=== PATIENT | female | born 2000 | race Caucasian/White ===

== ENCOUNTER 2019-07-19 15:42 | Emergency (ER) | payer SELFPAY ==
--- NOTE | 2019-07-19 15:56 | ER Document Report ---
HPI - HPI Time Seen by Provider: 07/19/19 15:50 Pain Level: 4 Notes: 19-year-old female presents to the ED for evaluation of right hand pain after her dog bit her after breaking up a fight between the dogs, states the dog's rabies vaccinations are up-to-date, patient states her tetanus was in the last 8 years, denies any numbness or tingling in hands or fingers on the right. No other area of injury. No [id number] medications have been tried, patient has not soaked fingers, this happened approximately 1 hour ago. No active bleeding. Denies any fevers or chills, chest pain shortness of breath, nausea vomiting or diarrhea, abdominal pain. - REPRODUCTIVE Reproductive: DENIES: : Past Medical History - General Information source: Patient - Social History Smoking Status: Unknown if Ever Smoked Family History: Reviewed & Not Pertinent Vertical Provider Document - CONSTITUTIONAL Agree With Documented VS: Yes Exam Limitations: No Limitations General Appearance: WD/WN - INFECTION CONTROL TRAVEL OUTSIDE OF THE [place] IN LAST 30 DAYS: No Course - Re-evaluation Re-evalutation: 07/19/19 16:35 19-year-old female presents for evaluation of dog bite. Afebrile vital stable no distress. Nurse's notes reviewed. Dog's rabies vaccinations up-to-date, patient states she has not had a tetanus in the last 8 years when she spoke with this provider however told the nurse it was within the last 5 years. Tetanus was ordered. High-pressure irrigation of dog bite with sutures approximately 1.5 cm and a half [place] presentation irrigated with 200 mL's of normal saline. No foreign body seen on exploration of the wound. One Steri-Strip was placed to approximate wound edges but did not fully close wound due to the wound being from a dog's mouth. X-ray did not show any foreign body or fracture. Will start patient on oral clindamycin as directed. X-ray of right third digit was negative for any acute fracture dislocation or foreign body. Patient placed in a metal finger splint Consent by pt given to place right finger splint,. cms intact, sensory motor function intact in bilateral upper_extremities prior to splint application fiberglass splint placed without incident. cms intact 20 minutes after splint application. Splint is in good alignment. Bilateral upper extremities with motor and sensory function intact 20 minutes after application. Pt stated that splint felt comfortable. After performing a Medical Screening Examination, I estimate there is LOW risk for OPEN FRACTURE, COMPARTMENT SYNDROME, TENDON RUPTURE, ACUTE NEUROVASCULAR INJURY, or RETAINED FOREIGN BODY, thus I consider the discharge disposition reasonable. Also, there is no evidence or peritonitis, sepsis, or toxicity. I have reevaluated this patient multiple times and no significant life threatening changes are noted. The patient and I have discussed the diagnosis and risks, and we agree with discharging home with close follow-up with the understanding that symptoms and presentations can change. We also discussed returning to the Emergency Department immediately if new or worsening symptoms occur. We have discussed the symptoms which are most concerning (e.g., changing or worsening pain, fever, numbness, weakness, cool or painful digits) that necessitate immediate return. 07/19/19 17:22 - Vital Signs Vital signs: Temp Pulse Resp BP Pulse Ox 98.0 F 93 16 133/79 H 96 07/19/19 15:47 07/19/19 15:47 07/19/19 15:47 07/19/19 15:47 07/19/19 15:47 Discharge - Discharge Clinical Impression: Dog bite, Laceration Condition: Stable Disposition: HOME, SELF-CARE Instructions: Animal Bites ([facility]), Laceration Care ([facility]), Prophylactic Antibiotic ([facility]), Soap Cleansing ([facility]), Tetanus Immunization Given ([facility]) Additional Instructions: Animal Bites Animal bites are often heavily contaminated with bacteria. In spite of thorough cleansing and proper treatment, these wounds frequently become infected. Bite wounds of the hands are especially prone to complications. Bites are dressed, if possible. Large wounds may require suturing after internal cleansing. Because of infection risk, some large wounds must remain unstitched. Your doctor is trained to advise you on the best treatment for your bite. Call the doctor at once if the wound becomes red, swollen, warm, increasingly painful, or if it begins to drain. Danger signs also include red streaks up the involved extremity, swollen glands in the groin or under the arm, or fever and chills. The risk of rabies from domestic animals is very low. Bats, sick animals, and wild animals may expose you to rabies. The physician, or the health department, will inform you if you will need to receive the rabies vaccine. Tetanus shot given. X-ray does not show any fracture. Take antibiotics as directed with food. Wound check in 24 to 48 hours. Return immediately for any new or worsening symptoms. Follow up with primary care provider, call tomorrow to make followup appointment. Prescriptions: Clindamycin HCl 300 mg PO Q6H #28 capsule Forms: Return to Work Referrals: VENKAT FAULKNER MD [Primary Care Provider] - Follow up in 3-5 days
[2019-07-19] MEDS ORDERED: DIPH/PERTUSS(ACELL)/TETANUS VAC/PF 0.5 ML SYR (>=10YO) IM ONE (16:31)
--- NOTE | 2019-07-19 16:52 | RADIOLOGY REPORT (SQ) ---
EXAM DESCRIPTION: FINGER LEFT COMPLETED DATE/TIME: 07/19/2019 4:42 pm REASON FOR STUDY: 3rd distal phalanx, dog bite, COMPARISON: None. NUMBER OF VIEWS: Three views. TECHNIQUE: AP, lateral, and oblique images acquired of the left 3rd finger LIMITATIONS: None. FINDINGS: MINERALIZATION: Normal. BONES: No acute fracture or dislocation. No worrisome bone lesions. SOFT TISSUES: Palmar finger tip soft tissue laceration left 3rd finger. No retained radiopaque forei gn body. No bony puncture wound left 3rd finger distal phalanx. OTHER: No other significant finding. IMPRESSION: Soft tissue laceration palmar aspect left 3rd finger tip without underlying fracture or retained radiopaque foreign body TECHNICAL DOCUMENTATION: JOB ID: [id number] [employer]- All Rights Reserved Reading location - IP/workstation name: [email or web address]
[2019-07-19 17:28] VITALS: BP 120/76
== END 2019-07-19 17:28 | disposition home or self-care (01) ==
LOC: ER 15:42
DX: S61.451A Open bite of right hand, initial encounter (principal); M79.641 Pain in right hand; W54.0XXA Bitten by dog, initial encounter
CPT/HCPCS: 99283

== ENCOUNTER 2020-05-22 21:21 | Emergency (ER) | payer MEDICAID ==
--- NOTE | 2020-05-22 22:16 | ER Document Report ---
ED Medical Screen (RME) - General Chief Complaint: Vaginal Bleeding Stated Complaint: VAGINAL BLEEDING, 7WKS PREG, LIGHTHEADED Time Seen by Provider: 05/22/20 22:11 Primary Care Provider: VENKAT FAULKNER MD [Primary Care Provider] - Follow up as needed Mode of Arrival: Ambulatory Information source: Patient Notes: HPI; 20-year-old female who states she is approximately 7 weeks presents to the emergency room complaining of vaginal bleeding with cramping that started last night. She denies any nausea, vomiting, no medications for pain. 1, LMP 03/21/2020 PE: Alert and oriented x3. Mild distress noted. Lungs: Clear to auscultation without rales, rhonchi, wheezes. Heart: Regular rate rhythm without murmurs, rubs, gallops. Unable to complete full abdominal exam in triage. I have greeted and performed a rapid initial assessment of this patient. A comprehensive ED assessment and evaluation of the patient, analysis of test results and completion of the medical decision making process will be conducted by additional ED providers. I have specifically instructed the patient or family members with the patient to immediately return to any nursing staff should anything change in the patient's condition or with their chief complaint. TRAVEL OUTSIDE OF THE [place] IN LAST 30 DAYS: No - Related Data Allergies/Adverse Reactions: No Known Allergies Allergy (Verified 07/19/19 15:43) Past Medical History Renal/ Medical History: Denies: Hx Peritoneal Dialysis Past Surgical History: Reports: Hx Tonsillectomy Physical Exam - Vital signs Vitals: Temp Pulse Resp BP Pulse Ox 98.3 F 77 16 135/74 H 98 05/22/20 21:05/22/20 21:27 05/22/20 21:05/22/20 21:05/22/20 21:27 Course - Vital Signs Vital signs: Temp Pulse Resp BP Pulse Ox 98.3 F 77 16 135/74 H 98 05/22/20 21:05/22/20 21:05/22/20 21:27 05/22/20 21:27 05/22/20 21:27 Doctor's Discharge - Discharge Referrals: VENKAT FAULKNER MD [Primary Care Provider] - Follow up as needed
[2020-05-22 22:41] LABS: APPEARANCE,URINE CLOUDY; BILIRUBIN,URINE NEGATIVE (NEGATIVE); COLOR,URINE AMBER; GLUCOSE, URINE NEGATIVE (NEGATIVE); KETONES,URINE NEGATIVE (NEGATIVE); LEUKOCYTE ESTERASE,URINE SMALL (NEGATIVE); NITRITE,URINE NEGATIVE (NEGATIVE); PROTEIN,URINE 30 mg/dL (NEGATIVE); URINE SPECIFIC GRAVITY 1.025; UROBILINOGEN,URINE NEGATIVE mg/dL (<2.0)
--- NOTE | 2020-05-23 00:03 | RADIOLOGY REPORT (SQ) ---
EXAM: First trimester OB ultrasound CLINICAL INDICATION: Vaginal bleeding COMPARISON: None. TECHNIQUE: First trimester OB ultrasound was performed. FINDINGS: Uterus: The uterus is anteverted. It measures 7.8 x 4.1 x 3.5 cm. The cervix is closed and measures 2.3 cm. The endometrium is normal measures 4.5 mm. No gestational sac. No intrauterine is seen. Ovaries and adnexa: The right ovary measures 2.9 x 2.0 x 1.9 cm and has normal blood flow and normal morphology. The left ovary measures 3.0 x 2.9 x 2.1 cm and also has normal morphology and normal blood flow. No adnexal mass. No free fluid. IMPRESSION: Unremarkable pelvic ultrasound. No gestational sac is seen. Viability is indeterminate.
[2020-05-23 02:46] LABS: ABSOLUTE BASOPHILS # (AUTO) 0.1 10^3/uL (0.0-0.2); ABSOLUTE EOSINOPHILS # (AUTO) 0.1 10^3/uL (0.0-0.6); ABSOLUTE MONOCYTES (AUTO) 0.8 10^3/uL (0.1-1.4); ABSOLUTE NEUT (AUTO) 6.9 10^3/uL (1.7-8.2); BASOPHILS % (AUTO) 0.5 % (0-2); EOSINOPHILS % (AUTO) 0.9 % (0-6); HEMATOCRIT 41.6 % (36.0-47.0); HEMOGLOBIN 14.1 g/dL (12.0-15.5); LYMPHOCYTES % (AUTO) 33.7 % (13-45); MEAN CORPUSCULAR HEMOGLOBIN 27.3 pg (27.0-33.4); MEAN CORPUSCULAR HGB CONC 33.9 g/dL (32.0-36.0); MEAN CORPUSCULAR VOLUME 81 fl (80-97); MONOCYTES % (AUTO) 6.5 % (3-13); PLATELET COUNT 251 10^3/uL (150-450); RED BLOOD COUNT 5.17 10^6/uL (3.72-5.28); RED CELL DISTRIBUTION WIDTH 13.9 % (11.5-14.0); SEGMENTED NEUTROPHILS % (AUTO) 58.4 % (42-78); TOTAL CELLS COUNTED % (AUTO) 100 %; WHITE BLOOD COUNT 11.7 10^3/uL (4.0-10.5)
[2020-05-23 03:01] LABS: ALBUMIN 4.2 g/dL (3.5-5.0); ALKALINE PHOSPHATASE 61 U/L (38-126); ANION GAP 8 (5-19); ASPARTATE AMINO TRANSFERASE 19 U/L (14-36); BILIRUBIN,TOTAL 0.5 mg/dL (0.2-1.3); BLOOD UREA NITROGEN 15 mg/dL (7-20); CALCIUM 9.1 mg/dL (8.4-10.2); CARBON DIOXIDE 26 mmol/L (22-30); CHLORIDE 104 mmol/L (98-107); GLUCOSE 109 mg/dL (75-110); POTASSIUM 3.8 mmol/L (3.6-5.0)
--- NOTE | 2020-05-23 05:19 | ER Document Report ---
ED General - General Chief Complaint: Vaginal Bleeding Stated Complaint: VAGINAL BLEEDING, 7WKS PREG, LIGHTHEADED Time Seen by Provider: 05/22/20 22:11 Primary Care Provider: VENKAT FAULKNER MD [Primary Care Provider] - Follow up as needed Mode of Arrival: Ambulatory Notes: 20-year-old female G1, P0 who is approximately 7 weeks presents the emergency department stating that she developed some vaginal bleeding approximately 1 week ago, states she is going through 1 pantiliner every hour or 2 and it has been getting slightly wool washer. Patient is concerned she may be having a miscarriage because she went to health department on Tuesday and had a positive urine test. States that she had a positive urine test at home approximately 2 weeks ago as well. Last menstrual period was 03/31/2020. Denies any pain. TRAVEL OUTSIDE OF THE [place] IN LAST 30 DAYS: No - Related Data Allergies/Adverse Reactions: No Known Allergies Allergy (Verified 07/19/19 15:43) Past Medical History - General Information source: Patient - Social History Smoking Status: Never Smoker Frequency of alcohol use: None Drug Abuse: None Family History: Reviewed & Not Pertinent Patient has homicidal ideation: No Pulmonary Medical History: Reports: Hx Asthma Renal/ Medical History: Denies: Hx Peritoneal Dialysis Past Surgical History: Reports: Hx Tonsillectomy Review of Systems - Review of Systems Constitutional: No symptoms reported Gastrointestinal: No symptoms reported. denies: Diarrhea, Nausea, Vomiting Female Genitourinary: See HPI -: Yes All other systems reviewed and negative Physical Exam - Vital signs Vitals: Temp Pulse Resp BP Pulse Ox 98.3 F 77 16 135/74 H 98 05/22/20 21:27 05/22/20 21:27 05/22/20 21:27 05/22/20 21:27 05/22/20 21:27 Interpretation: Hypertensive - Notes Notes: GENERAL: Alert, interacts well. No acute distress. HEAD: Normocephalic, atraumatic EYES: Pupils equal, round and reactive to light, extraocular movements intact. ENT: Oral mucosa moist, tongue midline. NECK: Full range of motion, supple, trachea midline. LUNGS: Clear to auscultation bilaterally, no wheezes, rales or rhonchi, no respiratory distress. HEART: Regular rate and rhythm, no murmurs, gallops, rubs. ABDOMEN: Soft, nontender, nondistended, bowel sounds present in all 4 quadrants. EXTREMITIES: Moves all 4 extremities spontaneously, no edema. No cyanosis. NEUROLOGICAL: Alert and oriented x3, normal speech. PSYCH: Normal mood, normal affect. SKIN: Warm, Dry, normal turgor, no rashes or lesions noted. Course - Re-evaluation Re-evalutation: 05/23/20 05:23 CBC shows slight leukocytosis 11.7, no anemia, CMP unremarkable, quantitative beta-hCG is 11.83, urinalysis shows large blood, small leukocyte esterase, 27 squamous epithelial cells. This is contaminated. Patient is B+, RhoGam is not indicated. Transvaginal US 05/22/20 22:14 IMPRESSION: Unremarkable pelvic ultrasound. No gestational sac is seen. Viability is indeterminate. Discussed with patient that with a quant of only 11 and the fact that she had a positive test 2 weeks ago as well as 2 days ago this is a miscarriage. Discussed return precautions including heavier vaginal bleeding. No indication for pelvic exam at this time as the patient is going through maybe 1 pantiliner an hour. Discharged home. - Vital Signs Vital signs: Temp Pulse Resp BP Pulse Ox 97.8 F 82 16 132/65 H 100 05/23/20 01:43 05/23/20 01:43 05/23/20 01:43 05/23/20 01:43 05/23/20 01:43 - Laboratory Result Diagrams: 05/23/20 02:34 05/23/20 02:34 Laboratory results interpreted by me: 05/22/20 05/23/20 05/23/20 22:20 02:34 02:34 WBC 11.7 H Beta HCG, Quant 11.83 H Urine Protein 30 H Urine Blood LARGE H Ur Leukocyte Esterase SMALL H Urine Ascorbic Acid 40 H Discharge - Discharge Clinical Impression: Complete miscarriage Condition: Stable Disposition: HOME, SELF-CARE Additional Instructions: Miscarriage You have had a miscarriage (medically called a "spontaneous "). The miscarriage occurred because the fetus did not develop normally. There is nothing you did to cause it, and nothing you could have done to prevent it. About one in four ends in miscarriage. You should rest in bed for two or three days. As there is some risk of infection of the uterus, you should not have intercourse for one week (or until okayed by your physician). You might not have a period for six to eight weeks. You should not become again for at least three months -- the uterus requires time to get back to normal. Call the doctor or return for re-examination if there is heavy or persistent vaginal bleeding, fever, foul discharge, continued cramping pains, or abdominal pain. Come back if you bleed through more than 2 pads an hour for more than 4 hours in a row. You may take ibuprofen or acetaminophen as directed on the bottles [id number]. Forms: Parent Work Note Referrals: VENKAT FAULKNER MD [Primary Care Provider] - Follow up as needed [facility] [Provider Group] - Follow up as needed
[2020-05-23 05:20] VITALS: BP 130/67
== END 2020-05-23 05:18 | disposition home or self-care (01) ==
LOC: ER 21:21
DX: O03.9 Complete or unspecified spontaneous abortion without complication (principal)
CPT/HCPCS: 36415; 76817; 80053; 81001; 84702; 85025; 86900; 86901; 93976; 99284